=== PATIENT | male | born 1985 | race African-American/Black ===

== ENCOUNTER 2022-12-28 14:00 | Outpatient (CLI) | payer OTHER ==
[2022-12-28 19:06] LABS: BASOPHILS % (AUTO) 0.6 %; HCT - HEMATOCRIT 49.7 % (42.0-52.0); HGB - HEMOGLOBIN 15.7 g/dL (14.0-18.0); LYMPHOCYTES # (AUTO) 1.1 10^3/uL (1.5-3.5); LYMPHOCYTES % (AUTO) 23.2 %; MEAN CORPUSCULAR HEMOGLOBIN 30.3 pg (27.0-31.0); MEAN CORPUSCULAR HGB CONC 31.6 g/dL (32.0-36.0); MEAN CORPUSCULAR VOLUME 95.8 fL (80.0-94.0); MEAN PLATELET VOLUME 10.5 fL (7.4-11.4); MONOCYTES # (AUTO) 0.7 10^3/uL (0.0-1.0); MONOCYTES % (AUTO) 14.3 %; NEUTROPHILS # (AUTO) 2.9 10^3/uL (1.5-6.6); NEUTROPHILS % (AUTO) 61.7 %; PLT - PLATELET COUNT 213 10^3/uL (130-450); RED BLOOD COUNT 5.19 10^6/uL (4.70-6.10); RED CELL DISTRIBUTION WIDTH 11.2 % (12.0-15.0); WHITE BLOOD COUNT 4.7 x10^3/uL (4.8-10.8)
[2022-12-28 19:47] LABS: ALBUMIN 4.2 g/dL (3.2-5.5); ALBUMIN/GLOBULIN RATIO 1.2 (1.0-2.2); BILIRUBIN,TOTAL 0.9 mg/dL (0.2-1.0); CALCIUM 9.1 mg/dL (8.5-10.3); CREATININE 1.1 mg/dL (0.6-1.2); POTASSIUM 3.9 mmol/L (3.5-5.0); TOTAL PROTEIN 7.7 g/dL (6.7-8.2)
[2022-12-28 20:02] LABS: THYROID STIMULATING HORMONE 0.63 uIU/mL (0.34-5.60)
== END 2022-12-28 14:15 | disposition home or self-care (01) ==
LOC: LAB.N 14:00
PROVIDERS: ATTEND Registered Nurse
DX: R51.9 Headache, unspecified (principal); R63.0 Anorexia; R61 Generalized hyperhidrosis
CPT/HCPCS: 36415; 80053; 84403; 84443; 85025

== ENCOUNTER 2024-04-09 14:41 | Outpatient (CLI) | payer OTHER ==
--- NOTE | 2024-04-09 15:34 | Sleep Patient Instructions ---
Sleep Center Visit Summary - Patient Visit Information Reason for Visit: Initial consult for evaluation of sleep disordered breathing and other sleep issues. - Patient Instructions Instructions Attached: Sleep Study Additional Instructions: You will be completing a sleep study, either an in-lab polysomnography (PSG) or home sleep study (HST). You will follow-up in the sleep care office after the sleep study is completed to hear the results and talk about therapy, if needed. You will be called by our office staff to schedule this appointment, but you may contact us with any questions. - Clinic Information Contact: [facility] [address] [place] [address] [email or web address] T: [phone]
--- NOTE | 2024-04-09 15:37 | SLEEP CARE CONSULTATION ---
Information from patient questionnaire entered by Gilda Castrejon. I have reviewed and concur with the information entered by Gilda Castrejon. This document represents the service I personally performed and the decisions made by me, Johanne Narvaez ARNP. History of Present Illness Service Date and Time: 04/09/2024 1441 Reason for Visit: New patient Chief Complaint: reports: Insomnia, Unrefreshed sleep, Frequent awakenings at night Date of Onset: 2YRS Usual bedtime: DEPENDS ON SHIFT WORK Time it takes to fall asleep: 30-40MINS Snores at night: Yes Observed to quit breathing while asleep: No Sleeps alone due to snoring: No Number of times waking at night: 2-3 Reasons for waking at night: reports: Choking (sometimes), Gasping for air (sometimes), Other (UNKNOWN) Toss, Turn, or Twitch while sleeping: Yes Recalls having dreams: Yes Usually gets out of bed at: 8-9 Feels refreshed in the morning: Yes (when he gets 6-8 hours of sleep; [place] if it is night) Morning headache: Yes ("majority of times", headache does not go away) Sleepy or fatigued during the day: Yes Ever fallen asleep while driving: No Takes day naps: Yes Dreams during day naps: Yes Prior sleep studies: No Additional HPI information: I had the pleasure of seeing TERESA ZAMORA today regarding the possibility of him having a sleep disorder. His current complaints are frequent night awakenings, insomnia, unrefreshed sleep and headaches. He says he has been in the [employer] for 2 years. He has been switching shifts from days to nights. 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 He says his sleep is not the same and he is having a lot of headaches. He says he just cannot sleep in the daytime. He is very tired most of the time. He cannot spend time with family like he wants to because he is so tired. He is currently on the manufacturing supervisor 2nd shift. He wants to be able to just go back to a day shift , so he can "get his life back". 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 Patient is and lives in . Have you smoked in the past 12 months: No Alcohol use: No Caffeine use: No Family History Family history of sleep disordered breathing: No Allergies and Home Medications Known drug allergies: No Drug allergies reviewed: Yes Home medication list reviewed: Yes (as listed) Allergy and home medication list: Allergies No Known Drug Allergies Allergy (Verified 04/09/24 14:51) Home Medications Medication Instructions Recorded Confirmed Last Taken Type Multivit,Calc,Min/FA/K1/Lycop See Rx Instructions .ROUTE .COMPLEX 04/09/24 04/09/24 Unknown History [One-A-Day Men's Complete Tab] diphenhydrAMINE [Benadryl] See Rx Instructions .ROUTE .COMPLEX 04/09/24 04/09/24 Unknown History Review of Systems Cardiovascular: denies: high blood pressure Gastrointestinal: denies: heartburn Neurological: reports: headaches Psychiatric: denies: anxiety, depression Ear/Nose/Throat: denies: tonsillectomy Endocrine: reports: sluggishness Musculoskeletal: reports: back pain Physical Exam Vital signs obtained and entered by: GILDA Hickey MA Blood Pressure: 120/71 (LEFT ARM) Cuff size: regular Heart Rate: 61 O2 Saturation: 98 Height: 5 ft 7.5 in Weight: 180 lb Body Mass Index: 27.8 BMI Classification: Overweight Neck circumference: 16 Mouth and throat: narrow oropharynx Soft palate: long Uvula visualization: 25% Mallampati Class III Tongue: enlarged in size with teeth wells on lateral edges Tonsils: 1+ Neck: normal w/o lymphadenopathy or thyromegaly Heart: regular rate and rhythm Lungs: clear bilaterally Impression and Plan 1. Suspected Obstructive Sleep Apnea-Hypopnea Syndrome, as suggested by a history of loud and irregular snoring, gasping or choking in sleep, morning headache, frequent awakening during the night, unrefreshed sleep, and excessive daytime sleepiness. Narrow oropharynx and obesity are common predisposing factors for obstructive sleep apnea-hypopnea syndrome. I recommend proceeding to polysomnography to confirm the diagnosis and to assess severity. If the patient has significant sleep disordered breathing, a manual CPAP titration study will also be performed to find the optimal treatment pressure. I informed the patient of what the sleep studies involve and after some discussion, obtained agreement to proceed. The pathophysiology of obstructive sleep apnea-hypopnea syndrome was discussed with the patient and health risks of cardiovascular and cerebrovascular disease if not treated. Risks of drowsy driving discussed in detail and patient advised to avoid long distance driving and to pot puller at the first sign of drowsiness. Patient agreed to plan. * Schedule polysomnography * Avoid long distance driving or driving when feeling sleepy. * Avoid alcohol, sedative and muscle relaxant around bedtime. * Attempt to lose weight. * Review instructions provided by trained office staff on how to prepare for the sleep study. * Return for follow-up after sleep study completed. Counseling Topics: Weight loss health impact Plan: sleep study and follow up Visit Type: In Office Time Spent with Patient (minutes): 30 Provider Statement: I spent 100% of the Face to Face Visit with the patient with greater than 50% spent counseling the patient and coordination of care.
[2024-04-09 15:38] VITALS: BP 120/71; O2SAT 98
== END 2024-04-09 14:42 | disposition home or self-care (01) ==
LOC: SC 14:41
PROVIDERS: ATTEND Nurse Practitioner Family
DX: G47.00 Insomnia, unspecified (principal); G47.8 Other sleep disorders; R51.9 Headache, unspecified; R06.83 Snoring; G47.10 Hypersomnia, unspecified; E66.3 Overweight; Z68.27 Body mass index [BMI] 27.0-27.9, adult
CPT/HCPCS: 99203; 99212